=== PATIENT | female | born 1960 | race Two or more races ===

== ENCOUNTER 2023-12-01 04:28 | Day surgery (SDC) | payer BC, OTHER ==
[2023-11-25 13:52] VITALS: BMI 32.1
[2023-12-01 11:37] VITALS: RESP 18; TEMP 98.5
[2023-12-01 12:58] VITALS: BP 123/75; PULSE 68
== END 2023-12-01 12:20 | disposition home or self-care (01) ==
LOC: JASU-ENDO 04:28
PROVIDERS: ATTEND Internal Medicine Gastroenterology
PROC: 0DJD8ZZ Inspection of Lower Intestinal Tract, Via Natural or Artificial Opening Endoscopic (ICD-10-PCS; principal; 2023-12-01 11:00)
DX: Z12.11 Encounter for screening for malignant neoplasm of colon (principal); K57.30 Diverticulosis of large intestine without perforation or abscess without bleeding; K64.8 Other hemorrhoids